=== PATIENT | female | born 1995 | race Caucasian/White ===

== ENCOUNTER 2025-01-03 22:18 | Emergency (ER) | payer BC, SELFPAY ==
[2025-01-03] VITALS (10 sets, daily range): BP systolic 123–138; BP diastolic 74–105; PULSE 95–141; RESP 18–27; TEMP 37.1; O2SAT 96–100
--- NOTE | 2025-01-03 22:49 | ED.GENADULT ---
HPI - General Adult General Chief complaint: Unspecified Stated complaint: fentanyl withdrawl Time Seen by Provider: 01/03/25 22:35 History of Present Illness HPI narrative: This is a 29-year-old female history opioid abuse who presents the ED for dystonia. Patient states that she has been on Suboxone for the past 3 days and about an hour so ago, she began to stiffening of her neck and she has been unable relax it. Denies taking any other medication. Related Data Allergies Allergy/AdvReac Type Severity Reaction Status Date / Time No Known Allergies Allergy Verified 01/03/25 22:50 Review of Systems Review of Systems: Gen.: Denies fevers or chills Eyes: Denies eye pain or visual change ENT: Denies congestion Respiratory: Denies shortness of breath or cough CV: Denies chest pain or palpitations GI: Denies abdominal pain nausea, emesis or diarrhea denies burning, urgency, frequency or hematuria Musculoskeletal: Denies back pain or muscle pain Neuro: Denies numbness, tingling, weakness or focal weakness Skin: Denies rash Except as documented, all other systems reviewed and negative Exam Narrative: APPEARANCE: Dystonic to the right EYES: EOMI HEENT: Normocephalic, atraumatic, OMM RESPIRATORY: No respiratory distress Clear to auscultation bilaterally with no rhonchi wheezing or rales. CARDIOVASCULAR: Regular rate and rhythm without murmurs rubs or gallops. ABDOMINAL: Soft, nontender, nondistended, no rebound or guarding MUSCULOSKELETAl: Moves all extremities. No clubbing, cyanosis or edema. NEURO: Dystonia. Awake and alert. Following commands, speech normal, no focal deficits SKIN:: Warm, dry. No rashes lesions or abrasions PSYCHIATRIC: Normal affect/mood, Course Vital Signs Vital signs: Vital Signs Pulse Oximetry 96 01/03/25 22:34 Temperature 98.7 F 01/03/25 22:35 Pulse Rate 100 01/03/25 23:31 Respiratory Rate 18 01/03/25 23:31 Blood Pressure 136/74 01/03/25 23:31 Pulse Oximetry 99 01/03/25 23:30 Medical Decision Making MDM Narrative Medical decision making narrative: 29-year-old female Presenting for dystonia. On initial evaluation patient was in moderate distress with dystonic reaction. Tachycardic and tachypneic. Differentials include but are not limited to: Medication side effect, overdose, torticollis Notable exam findings: Acute dystonia Patient was given 50 mg Benadryl IV and had complete resolution of her symptoms. Suspected the patient did have acute dystonia from her Suboxone use. She was advised to weigh the risks and benefits of taking the Suboxone for her fentanyl withdrawal. She was advised to talk to her prescribing provider at [facility] tomorrow or Sunday to discuss this further. She was advised to return the ED for any new or worsening symptoms. Medical Records Medical records reviewed: Yes I reviewed the external patient's medical records. Vital Signs Vital Signs: Vital Signs Pulse Oximetry 96 01/03/25 22:34 Temperature 98.7 F 01/03/25 22:35 Pulse Rate 100 01/03/25 23:31 Respiratory Rate 18 01/03/25 23:31 Blood Pressure 136/74 01/03/25 23:31 Pulse Oximetry 99 01/03/25 23:30 Discharge Plan Discharge Clinical Impression: Dystonia Patient Disposition: Home Condition: Stable Instructions: Antibiotic Form, Extrapyramidal Symptoms (ED) Additional Instructions: You likely had a side effect to her Suboxone. This was resolved with Benadryl. You should discuss your need for the Suboxone with chest . If this happens again try taking Benadryl. Return to the ED for any new or worsening symptoms. Patient Language: Taiwanese Follow-up/Referrals: Rachana,Meli Goldman, DELICIA [Primary Care Provider, Unknown]
== END 2025-01-03 23:34 | disposition home or self-care (01) ==
LOC: ANHED 23:30
PROVIDERS: Emergency Provider Student in an Organized Health Care Education/Training Program; PCP Nurse Practitioner Family
DX: G24.9 Dystonia, unspecified (principal); F11.10 Opioid abuse, uncomplicated
CPT/HCPCS: 96374; 99284; J1200